=== PATIENT | female | born 1980 | race Two or more races ===

== ENCOUNTER 2024-12-18 08:00 | Outpatient (CLI) | payer OTHER ==
[~2024-12-18] VITALS: Ht 157.5 cm; Wt 68.0 kg
[2024-12-18 14:34] VITALS: BP 115/73
[2024-12-18 15:34] LABS: RH POSITIVE
== END 2024-12-18 14:09 | disposition home or self-care (01) ==
LOC: LAB 08:00 → EKG 08:00 → LAB 14:09 → EDSTATUS 12-29 12:30 → OB/GYN 12-29 12:30
PROVIDERS: ATTEND Obstetrics & Gynecology Gynecology
DX: D25.1 Intramural leiomyoma of uterus (principal); N92.1 Excessive and frequent menstruation with irregular cycle